=== PATIENT | female | born 1960 | race Caucasian/White ===

== ENCOUNTER 2022-05-01 23:00 | Observation (INO) | payer BC, SELFPAY ==
[2022-05-01 23:10] VITALS: BP 112/56; PULSE 126; RESP 17; TEMP 36.8; O2SAT 87; BMI 20.3
--- NOTE | 2022-05-01 23:17 | ED_ITS ---
HPI - General Adult General Chief complaint: Altered Mental Status Stated complaint: Alt mental status Time Seen by Provider: 05/01/22 23:11 Source: EMS Mode of arrival: EMS Limitations: altered mental status History of Present Illness HPI narrative: Patient is a 61-year-old female who arrived by EMS after they were contacted by the patient's family. She is from [place]. She is visiting the local area visiting her father and mother. Initially had very little information regarding the presentation. EMS stated that when 1st responders arrived to the patient's resident she did receive intranasal Narcan. It did not work immediately. It was several minutes later when the patient seemed to become more aroused. EMS arrived. They did find her confused. She had 1 episode in the ambulance coming to the emergency department when she seemed to clench her teeth. There was no specific rhythm is shaking per EMS reports. They stated that they were on the verge of intubating the patient when she suddenly became more responsive but was certainly confused. It also seems that she bit the right lower lip. There was no loss of bowel or bladder. Upon arrival the patient had no specific complaints. She was alert to person and place. Patient's family eventually arrived stating that the patient was at her normal state of health. She went to sleep late afternoon. She did have snoring episodes which is not uncommon for her. The patient's daughter went to check on her. She did not think much of the situation so she let the patient sleep longer. When she went back to check on her later she thought the patient had ?agonal ?respirations and potentially had color change. This is obviously not normal for her. We were then inform that the patient does have a seizure disorder. She is on Dilantin. She also has a diagnosis of sleep apnea but does not use a BiPAP. Her last seizure was approximately 5 years ago. Related Data Home Medications Medication Instructions Recorded Confirmed amlodipine 5 mg tablet 5 mg PO DAILY 05/02/22 05/02/22 citalopram 40 mg tablet (Celexa) 40 mg PO DAILY 05/02/22 05/02/22 estradiol 1 mg tablet 1 tab PO DAILY 05/02/22 05/02/22 eszopiclone 3 mg tablet (Lunesta) 3 mg PO BEDTIME 05/02/22 05/02/22 levothyroxine 150 mcg tablet 150 mcg PO DAILY 05/02/22 05/02/22 phenytoin sodium extended 100 mg 100 mg PO BID 05/02/22 05/02/22 capsule progesterone micronized 100 mg 1 cap PO DAILY 05/02/22 05/02/22 capsule Allergies Allergy/AdvReac Type Severity Reaction Status Date / Time No Known Drug Allergies Allergy Verified 05/02/22 01:27 Review of Systems Review of Systems ROS Unobtainable: All systems reviewed & are unremarkable except as noted in HPI and below Patient History Medical History Depression Essential hypertension Hypothyroidism Seizure Social History Smoking Status: Unknown if ever smoked Smoking Status: Unknown if ever smoked alcohol intake frequency: other Substance Use Type: unknown Exam Initial Vital Signs Initial Vital Signs: Vital Signs Temperature 98.2 F 05/01/22 23:10 Pulse Rate 126 H 05/01/22 23:10 Respiratory Rate 17 05/01/22 23:10 Blood Pressure 112/56 L 05/01/22 23:10 Pulse Oximetry 87 L 05/01/22 23:10 Oxygen Delivery Method 05/01/22 23:10 Const General: healthy appearing, comfortable and No ill appearing HENMT Head: normal to inspection and normocephalic Mouth: tongue normal and lip abnormal (Swelling right lower lip) Eyes Pupils: pupil size bilaterally 2 Resp Effort & Inspection: normal respiratory effort Auscultation: clear to auscultation bilaterally Cardio Rate: tachycardic Rhythm: regular rhythm GI Inspection: normal to inspection Palpation: soft and No tender Skin General: no rashes or lesions noted Neuro Speech: speech normal Other: Upon arrival patient was oriented to person and place but not situation. Upon re-evaluation she was alert oriented x3. Extrem General: normal to inspection and capillary refill normal Psych Appearance: grossly normal and well kempt Course Orders Ordered: ED Orders 05/01/22 23:18 Urinalysis and Microscopic Stat Urine Drug Screen, Rapid Stat 05/01/22 23:20 Acetaminophen Stat Complete Blood Count AUTO DIFF Stat Comprehensive Metabolic Panel Stat Ethanol (ETOH) Stat Lipase Stat Magnesium Stat Phenytoin / Dilantin Stat Prolactin Stat Salicylate Stat 05/02/22 00:55 COVID19 -Nasal RAPID/Pre-Proc Stat 05/02/22 01:19 CT angio chest PE protocol Stat 05/02/22 03:22 Procalcitonin Stat 05/02/22 04:43 Blood Culture Stat 05/02/22 05:00 TSH [Thyroid Stimulating Hormone] Stat 05/02/22 05:04 RT Consult Eval and Treat Now 05/02/22 05:15 ABG [Arterial Blood Gas] Stat Acetaminophen (Acetaminophen 325 Mg Tablet) 650 mg PO Q6HR PRN PRN Reason: Fever/Mild Pain (1-3) Enoxaparin Sodium (Enoxaparin 40 Mg/0.4 Ml Syringe) 40 mg SUBCUT DAILY BRIGITTE Sodium Chloride (Normal Saline 0.9%) 1,000 mls @ 125 mls/hr IV CONT BRIGITTE Last Infusion: 05/02/22 01:26 Dose: 0 mls/hr Documented By: Admin: 05/02/22 00:00 Dose: 999 mls/hr Documented By: LOBO Levofloxacin (Levofloxacin 250 Mg Tablet) 750 mg PO DAILY BRIGITTE Stop: 05/07/22 08:59 Ondansetron HCl (Ondansetron 4 Mg/2 Ml Inj) 4 mg IV Q6HR PRN PRN Reason: Nausea And Vomiting Discontinued Medications Piperacillin Sod/Tazobactam (Sod 4.5 gm/ Sodium Chloride) 100 mls @ 200 mls/hr IV NOW ONE Stop: 05/02/22 03:23 Last Infusion: 05/02/22 05:38 Dose: 0 mls/hr Documented By: Admin: 05/02/22 04:55 Dose: 200 mls/hr Documented By: BONIFACIO Vital Signs Vital signs: Vital Signs - 8 hr 05/01/22 23:10 05/01/22 23:52 05/01/22 23:54 Temperature 98.2 F Pulse Rate 126 H 107 H 108 H Respiratory Rate 17 13 18 Blood Pressure 112/56 L 83/49 L Pulse Oximetry 87 L 96 97 Oxygen Delivery Method Room Air 05/02/22 00:00 05/02/22 00:00 05/02/22 00:15 Temperature Pulse Rate 112 H Respiratory Rate 17 Blood Pressure 93/54 L 95/52 L Pulse Oximetry 98 Oxygen Delivery Method 05/02/22 00:15 05/02/22 00:30 05/02/22 00:30 Temperature Pulse Rate 116 H 104 H Respiratory Rate 12 17 Blood Pressure 81/44 L Pulse Oximetry 99 99 Oxygen Delivery Method 05/02/22 00:45 05/02/22 00:45 05/02/22 01:00 Temperature Pulse Rate 100 H Respiratory Rate 14 Blood Pressure 81/44 L 97/54 L Pulse Oximetry 100 Oxygen Delivery Method 05/02/22 01:00 05/02/22 01:15 05/02/22 01:15 Temperature Pulse Rate 107 H 111 H Respiratory Rate 15 19 Blood Pressure 94/53 L Pulse Oximetry 94 89 L Oxygen Delivery Method 05/02/22 01:30 05/02/22 01:30 05/02/22 01:45 Temperature Pulse Rate 107 H Respiratory Rate 20 Blood Pressure 92/51 L 96/54 L Pulse Oximetry 97 Oxygen Delivery Method 05/02/22 01:45 05/02/22 01:58 05/02/22 01:58 Temperature Pulse Rate 101 H 107 H Respiratory Rate 16 14 Blood Pressure 103/58 L Pulse Oximetry 96 96 Oxygen Delivery Method 05/02/22 02:00 05/02/22 02:00 05/02/22 02:12 Temperature Pulse Rate 101 H Respiratory Rate 9 L Blood Pressure 92/54 L 108/59 L Pulse Oximetry 97 Oxygen Delivery Method 05/02/22 02:12 05/02/22 02:13 05/02/22 02:13 Temperature Pulse Rate 106 H 109 H Respiratory Rate 11 L 28 H Blood Pressure 118/60 Pulse Oximetry 92 82 L Oxygen Delivery Method 05/02/22 02:15 05/02/22 02:15 Temperature Pulse Rate 109 H Respiratory Rate 13 Blood Pressure 102/55 L Pulse Oximetry 96 Oxygen Delivery Method Medical Decision Making Lab Data Lab results reviewed: Yes I reviewed the patient's lab results. Result diagrams: 05/01/22 23:20 05/01/22 23:20 Labs: Lab Results 05/01/22 05/01/22 05/01/22 Range/Units 23:20 23:20 23:20 WBC 15.9 H (4.5-11.0) X10^3/uL RBC 3.60 L (4.0-5.2) X10^6/uL Hgb 11.0 L (12.0-16.0) g/dL Hct 33.9 L (36-46) % MCV 94.0 (80-100) fL MCH 30.6 (26-34) PG MCHC 32.5 (30-36) % RDW 15.1 H (11.6-14.8) % Plt Count 252 (150-400) X10^3/uL Neut % (Auto) 89.5 H (50-75) % Lymph % (Auto) 3.3 L (25-40) % [place] % (Auto) 6.9 (3-14) % Eos % (Auto) 0.2 L (2-4) % Baso % (Auto) 0.1 (0-2) % Neut # (Auto) 14696 H (5762-7523) /uL Lymph # (Auto) 500 L (4943-5925) /uL [place] # (Auto) 1100 H (0-900) /uL Eos # (Auto) 0 (0-450) /uL Baso # (Auto) 0 (0-100) /uL Sodium 138 (137-145) mmol/L Potassium 4.3 (3.4-5.1) mmol/L Chloride 101 (98-107) mmol/L Carbon Dioxide 29 (22-32) mmol/L BUN 11 (7-17) mg/dL Creatinine 0.80 (0.52-1.04) mg/dL Estimated GFR > 60 (>60) mL/min BUN/Creatinine Ratio 13.8 (6-22) Glucose 98 (70-100) mg/dL Calcium 8.1 L (8.4-10.2) mg/dL Magnesium 1.8 (1.6-2.3) mg/dL Total Bilirubin 0.2 (0.2-1.3) mg/dL AST 152 H (14-36) IU/L ALT 52 H (<35) IU/L Alkaline Phosphatase 97 (38-126) U/L Total Protein 6.4 (6.3-8.2) g/dL Albumin 3.8 (3.5-5.0) g/dL Globulin 2.6 (1.7-4.1) g/dL Albumin/Globulin Ratio 1.5 (1.0-2.8) Lipase 277 (23-300) U/L Procalcitonin (<0.5) ng/mL TSH (0.47-4.68) uIU/mL Prolactin 49.7 H (3.0-18.6) ng/mL Salicylates < 1.0 (<20) mg/dL Acetaminophen < 10 (10-30) ug/mL Phenytoin < 3.0 L (10-20) ug/mL Ethyl Alcohol < 10 ( - 10) mg/dL SARS-CoV-2 (PCR) (Negative) 05/01/22 05/01/22 05/02/22 Range/Units 23:20 23:20 00:55 WBC (4.5-11.0) X10^3/uL RBC (4.0-5.2) X10^6/uL Hgb (12.0-16.0) g/dL Hct (36-46) % MCV (80-100) fL MCH (26-34) PG MCHC (30-36) % RDW (11.6-14.8) % Plt Count (150-400) X10^3/uL Neut % (Auto) (50-75) % Lymph % (Auto) (25-40) % [place] % (Auto) (3-14) % Eos % (Auto) (2-4) % Baso % (Auto) (0-2) % Neut # (Auto) (2187-0413) /uL Lymph # (Auto) (7518-3320) /uL [place] # (Auto) (0-900) /uL Eos # (Auto) (0-450) /uL Baso # (Auto) (0-100) /uL Sodium (137-145) mmol/L Potassium (3.4-5.1) mmol/L Chloride (98-107) mmol/L Carbon Dioxide (22-32) mmol/L BUN (7-17) mg/dL Creatinine (0.52-1.04) mg/dL Estimated GFR (>60) mL/min BUN/Creatinine Ratio (6-22) Glucose (70-100) mg/dL Calcium (8.4-10.2) mg/dL Magnesium (1.6-2.3) mg/dL Total Bilirubin (0.2-1.3) mg/dL AST (14-36) IU/L ALT (<35) IU/L Alkaline Phosphatase (38-126) U/L Total Protein (6.3-8.2) g/dL Albumin (3.5-5.0) g/dL Globulin (1.7-4.1) g/dL Albumin/Globulin Ratio (1.0-2.8) Lipase (23-300) U/L Procalcitonin 0.09 (<0.5) ng/mL TSH 2.45 (0.47-4.68) uIU/mL Prolactin (3.0-18.6) ng/mL Salicylates (<20) mg/dL Acetaminophen (10-30) ug/mL Phenytoin (10-20) ug/mL Ethyl Alcohol ( - 10) mg/dL SARS-CoV-2 (PCR) Negative (Negative) Imaging Data CT scan - chest: Radiologist's Impression: No pulmonary emboli Airspace opacities within the right upper lobe consistent with pneumonia MDM Narrative Medical decision making narrative: No seizure activity since arrival here in the ER. She is now completely alert oriented. She has had episodes where she desaturates to the 80s and even at 1 point was down into the 70s and upper 60s. She does regain her oxygen saturations with 1 L by nasal cannula. The CT scan of her chest shows findings consistent with pneumonia. Given her presentation I do have concern that this was an aspiration pneumonia. Zosyn was ordered. She is nontoxic appearing when she is sitting in the room and on oxygen. Not hypotensive. Given her presenting symptoms and her hypoxia patient does require admission to the hospital for further evaluation. I did discuss this with the patient. She expressed understanding and agreement. Discussed the case with KAY Weston who will admit for further evaluation and treatment. Discharge Plan Departure Patient Disposition: Admitted As Inpatient Clinical Impression: Pneumonia, Hypoxia, Seizure Admit Date/Time: 05/02/22 05:10 Admit Provider: Ronna Weston
[2022-05-01 23:31] LABS: Add Manual Diff / Slide Review NO; Basophils Absolute Auto 0 /uL (0-100); Basophils Percent Auto 0.1 % (0-2); Eosinophils Absolute Auto 0 /uL (0-450); Eosinophils Percent Auto 0.2 % (2-4); Hematocrit 33.9 % (36-46); Lymphocytes Absolute Auto 500 /uL (1100-4500); Lymphocytes Percent Auto 3.3 % (25-40); Mean Corpuscular HGB Conc 32.5 % (30-36); Mean Corpuscular Hemoglobin 30.6 PG (26-34); Monocytes Absolute Auto 1100 /uL (0-900); Monocytes Percent Auto 6.9 % (3-14); Neutrophils Absolute Auto 14200 /uL (1500-7000); Neutrophils Percent Auto 89.5 % (50-75); Platelet Count 252 X10^3/uL (150-400); Red Cell Distribution Width 15.1 % (11.6-14.8); White Blood Cell Count 15.9 X10^3/uL (4.5-11.0)
[2022-05-01 23:42] LABS: Acetaminophen < 10 ug/mL (10-30); Alanine Aminotransferase 52 IU/L (<35); Albumin 3.8 g/dL (3.5-5.0); Albumin Globulin Ratio 1.5 (1.0-2.8); Alkaline Phosphatase 97 U/L (38-126); Aspartate Aminotransferase 152 IU/L (14-36); BUN Creatinine Ratio 13.8 (6-22); Bilirubin Total 0.2 mg/dL (0.2-1.3); Blood Urea Nitrogen 11 mg/dL (7-17); Calcium 8.1 mg/dL (8.4-10.2); Carbon Dioxide 29 mmol/L (22-32); Chloride 101 mmol/L (98-107); Estimated Glomerular Filt Rate > 60 mL/min (>60); Ethanol (ETOH) < 10 mg/dL; Globulin 2.6 g/dL (1.7-4.1); Glucose 98 mg/dL (70-100); HEMOLYSIS < 15 (0-50); Lipase 277 U/L (23-300); Magnesium 1.8 mg/dL (1.6-2.3); Potassium 4.3 mmol/L (3.4-5.1); Salicylate < 1.0 mg/dL (<20); Sodium 138 mmol/L (137-145); Total Protein 6.4 g/dL (6.3-8.2)
[2022-05-01 23:52] VITALS: BP 83/49; PULSE 107; RESP 13; O2SAT 96
[2022-05-01 23:52] LABS: Phenytoin / Dilantin < 3.0 ug/mL (10-20)
[2022-05-01 23:54] VITALS: PULSE 108; RESP 18; O2SAT 97
[2022-05-01 23:58] LABS: Prolactin 49.7 ng/mL (3.0-18.6)
[2022-05-02] VITALS (34 sets, daily range): BP systolic 81–145; BP diastolic 44–63; PULSE 85–116; RESP 9–28; TEMP 37.3; O2SAT 82–100
[2022-05-02] MEDS: SODIUM CHLORIDE 0.9% 1,000 ML 999 ML IV
--- NOTE | 2022-05-02 00:48 | PC.NURSE ---
Pt BP low, provider aware. IVF bolus (2nd bag) placed on pressure bag. Pt asymptomatic, still remains AxOx4, GCS 15 and interactive with daughter in room.
--- NOTE | 2022-05-02 01:19 | DI.CT.S_ITS ---
PROCEDURE: CT ANGIO CHEST PE PROTOCOL INDICATIONS: Chest pain, shortness of breath, tachycardia TECHNIQUE: After the administration of intravenous contrast, 2 mm thick sections acquired from the pulmonary apices to the posterior costophrenic angles. 3-dimensional maximum intensity projection (MIP) coronal and sagittal reformats were then acquired through the thorax. For radiation dose reduction, the following was used: automated exposure control, adjustment of mA and/or kV according to patient size. COMPARISON: None. FINDINGS: Image quality: Excellent. Lungs and pleura: Airspace opacities in the right upper lobe consistent with pneumonia. Mild bibasilar atelectasis. No pleural effusions or pneumothorax. Central and peripheral airways are patent and normal in caliber. Mediastinum: Heart size is normal. No pericardial effusion. No mediastinal adenopathy by size criteria. Thoracic aorta and central pulmonary arteries are normal in size. Esophagus is normal in caliber. No hiatal hernia. Bones and chest wall: No suspicious bony lesions. No vertebral body compression fractures. No axillary or supraclavicular adenopathy by size criteria. Thyroid gland is normal. Abdomen: Limited visualization of the upper abdomen shows no acute abnormality. IMPRESSION: 1. No pulmonary emboli. 2. Right upper lobe pneumonia. Comment: Final report is concordant with preliminary interpretation by [facility] Dictated by: Marcelino Paredes M.D. on 05/02/2022 at 7:22 Approved by: Marcelino Paredes M.D. on 05/02/2022 at 7:48
[2022-05-02 01:21] LABS: COVID19 -Nasal RAPID Negative (Negative)
--- NOTE | 2022-05-02 02:19 | PC.NURSE ---
Orthostatic BPs obtained on pt. BP went from 96 systolic to 118 systolic (sitting to standing), and HR conchis from 102 to 118 with standing. Provider notified.
--- NOTE | 2022-05-02 03:00 | PC.NURSE ---
Pt had dropped down to 66% on Room air. was able to bring sats up with deep breathing and placed back on 1 L via nasal cannula and provider aware.
--- NOTE | 2022-05-02 03:53 | PC.NURSE ---
Pt not sure if she wants to be admitted. Per provider, we will wait on blood draw for blood cultures and abx administration until pt makes this decision.
[2022-05-02 03:57] LABS: Procalcitonin 0.09 ng/mL (<0.5)
--- NOTE | 2022-05-02 04:07 | PC.NURSE ---
Pt agreeable to admission. Lab called to obtain blood cultures.
[2022-05-02] MEDS: PIPERACILLIN/TAZO 4.5 GM in SODIUM CHLORIDE 0.9% 100 ML IV (04:55)
[2022-05-02 05:47] LABS: Thyroid Stimulating Hormone 2.45 uIU/mL (0.47-4.68)
[2022-05-02 05:56] LABS: HCO3 ABG 30 mmol/L (22-26); Oxygen Saturation ABG 98 % (95-100); PCO2 ABG 65.1 mmHg (35-45); PO2 ABG 125 mmHg (80-100); TCO2 ABG 31 mmol/L (21-31)
--- NOTE | 2022-05-02 05:56 | P.HP_ITS ---
History of Present Illness History of Present Illness Date Patient Seen: 05/02/22 Time Patient Seen: 06:24 Chief complaint: Alt mental status Narrative: Jyoti Beltre is a 61-year-old female visiting from [place] to see her mother who was on hospice here. Patient does not really remember anything that happened but her daughter is in the room and provides history. They returned home and the patient went upstairs take a nap at 6:00 p.m.. She then got up around sometime between 7 and 7:30 p.m. and then went back to sleep the daughter heard her speaking in her sleep and groaning. The patient apparently had a history of sleep apnea used to use a CPAP machine but currently does not per the daughter. The daughter went back up at 9:00 a.m. to check on her, found her mother gasping for breath she seemed to be very apneic and stated that her mother's face and her lips were blue and that is when she called 911. Patient's last seizure was in 2013 they started generally about 10 years ago and she has always taken a single dose of Dilantin and has been trying to wean off of her medications. No particular reason why. Per the emergency department provider EMS also reported that she was confused when EMS arrived and then appeared to have another seizure in the ambulance when she clenched her teeth. They are on the verge of intubating the patient when she awoke in and was confused. They reported that she bit her right lower lip but was not incontinent of urine or stool. The patient does state that she has been under lot of stress with respect to her mom's health condition. Per the ED provider she was very apneic and desats into the mid 80s but seems to do okay when she has about 1 L of oxygen she did drop down into the 60s momentarily in the emergency department. The CT was reported to me to have a localized collection in the right upper lobe. She does have an elevated white count at 15.9 she is mildly anemic with a hemoglobin and hematocrit of 11 and 33.9 respectively,, she has a left shift, her ABG pH was 7.27 ABG pCO2 is 65.1 ABG PO2 is 125 ABG bicarb was 30 ABG total CO2 is 31 and ABG O2 saturation is 98%. Sodium was 138 potassium 4.3 chloride 101 bicarb 29 BUN 11 creatinine 0.8 with an EGFR of greater than 60 calcium was 8.1 magnesium 1.8 AST 152 ALT 52 lipase 277 TSH was normal at 2.45 prolactin 49.7 and her Dilantin level was low at less than 3 normal ranges between 10 and 20, COVID-19 PCR is negative. Patient History Medical History (Updated 05/02/22 @ 06:32 by HALEY Montejo) Depression Essential hypertension Fracture, jaw Hypothyroidism Seizure disorder Surgical History (Updated 05/02/22 @ 06:32 by HALEY Montejo) Breast implant status Family & Social History Family History (Updated 05/02/22 @ 06:33 by HALEY Montejo) Mother Dementia Hospice care patient Sister Lupus Father Alive and well Safety & Behavioral: Feels Safe in Current Yes Environment Tobacco & Substance use: Smoking Status denies alcohol intake frequency 2-3 beers daily Substance Use Type unknown Meds Home Medications and Allergies Home Medications Medication Instructions Recorded Confirmed Type amlodipine 5 mg tablet 5 mg PO DAILY 05/02/22 05/02/22 History citalopram 40 mg tablet (Celexa) 40 mg PO DAILY 05/02/22 05/02/22 History estradiol 1 mg tablet 1 tab PO DAILY 05/02/22 05/02/22 History eszopiclone 3 mg tablet (Lunesta) 3 mg PO BEDTIME 05/02/22 05/02/22 History levothyroxine 150 mcg tablet 150 mcg PO DAILY 05/02/22 05/02/22 History phenytoin sodium extended 100 mg 100 mg PO BID 05/02/22 05/02/22 History capsule progesterone micronized 100 mg 1 cap PO DAILY 05/02/22 05/02/22 History capsule Allergies Allergy/AdvReac Type Severity Reaction Status Date / Time No Known Drug Allergies Allergy Verified 05/02/22 01:27 Review of Systems Review of Systems ROS: Yes All systems reviewed with the patient and are negative except as otherwise documented Exam Vital Signs (past 8 hours): - 05/01/22 23:10 05/01/22 23:52 05/01/22 23:54 Temperature 98.2 F Pulse Rate 126 H 107 H 108 H Respiratory Rate 17 13 18 Blood Pressure 112/56 L 83/49 L Pulse Oximetry 87 L 96 97 Oxygen Delivery Method Room Air 05/02/22 00:00 05/02/22 00:00 05/02/22 00:15 Temperature Pulse Rate 112 H Respiratory Rate 17 Blood Pressure 93/54 L 95/52 L Pulse Oximetry 98 Oxygen Delivery Method 05/02/22 00:15 05/02/22 00:30 05/02/22 00:30 Temperature Pulse Rate 116 H 104 H Respiratory Rate 12 17 Blood Pressure 81/44 L Pulse Oximetry 99 99 Oxygen Delivery Method 05/02/22 00:45 05/02/22 00:45 05/02/22 01:00 Temperature Pulse Rate 100 H Respiratory Rate 14 Blood Pressure 81/44 L 97/54 L Pulse Oximetry 100 Oxygen Delivery Method 05/02/22 01:00 05/02/22 01:15 05/02/22 01:15 Temperature Pulse Rate 107 H 111 H Respiratory Rate 15 19 Blood Pressure 94/53 L Pulse Oximetry 94 89 L Oxygen Delivery Method 05/02/22 01:30 05/02/22 01:30 05/02/22 01:45 Temperature Pulse Rate 107 H Respiratory Rate 20 Blood Pressure 92/51 L 96/54 L Pulse Oximetry 97 Oxygen Delivery Method 05/02/22 01:45 05/02/22 01:58 05/02/22 01:58 Temperature Pulse Rate 101 H 107 H Respiratory Rate 16 14 Blood Pressure 103/58 L Pulse Oximetry 96 96 Oxygen Delivery Method 05/02/22 02:00 05/02/22 02:00 05/02/22 02:12 Temperature Pulse Rate 101 H Respiratory Rate 9 L Blood Pressure 92/54 L 108/59 L Pulse Oximetry 97 Oxygen Delivery Method 05/02/22 02:12 05/02/22 02:13 05/02/22 02:13 Temperature Pulse Rate 106 H 109 H Respiratory Rate 11 L 28 H Blood Pressure 118/60 Pulse Oximetry 92 82 L Oxygen Delivery Method 05/02/22 02:15 05/02/22 02:15 Temperature Pulse Rate 109 H Respiratory Rate 13 Blood Pressure 102/55 L Pulse Oximetry 96 Oxygen Delivery Method Oxygen Delivery Method Room Air Narrative Exam Narrative: Gen: Alert, oriented, well-developed 61 y.o. female, NAD HEENT: normocephalic, atraumatic, conjunctiva clear, sclera non-icteric, oral mucosa pink and moist Neck: supple, full ROM, no JVD, trachea is midline Resp: Lungs CTA, non-labored breathing, on 1L O2 NC CV: RRR, no murmur or rubs Abd: soft, non-tender, normoactive BTs Skin: no lesions or rashes, dry and intact Neuro: Alert and oriented X 4 w/no focal deficits. Speech clear and coherent. Extremities: moves all 4 extremities, is ambulatory, negative Magdalena?s sign Psyche: normal mood and affect. Objective Labs Result Diagrams: 05/01/22 23:20 05/01/22 23:20 Labs: Laboratory Results - last 24 hr 05/01/22 05/01/22 05/01/22 23:20 23:20 23:20 WBC 15.9 H RBC 3.60 L Hgb 11.0 L Hct 33.9 L MCV 94.0 MCH 30.6 MCHC 32.5 RDW 15.1 H Plt Count 252 Neut % (Auto) 89.5 H Lymph % (Auto) 3.3 L [place] % (Auto) 6.9 Eos % (Auto) 0.2 L Baso % (Auto) 0.1 Neut # (Auto) 25571 H Lymph # (Auto) 500 L [place] # (Auto) 1100 H Eos # (Auto) 0 Baso # (Auto) 0 Sodium 138 Potassium 4.3 Chloride 101 Carbon Dioxide 29 BUN 11 Creatinine 0.80 Estimated GFR > 60 BUN/Creatinine Ratio 13.8 Glucose 98 Calcium 8.1 L Magnesium 1.8 Total Bilirubin 0.2 AST 152 H ALT 52 H Alkaline Phosphatase 97 Total Protein 6.4 Albumin 3.8 Globulin 2.6 Albumin/Globulin Ratio 1.5 Lipase 277 Procalcitonin TSH Prolactin 49.7 H Salicylates < 1.0 Acetaminophen < 10 Phenytoin < 3.0 L Ethyl Alcohol < 10 SARS-CoV-2 (PCR) 05/01/22 05/01/22 05/02/22 23:20 23:20 00:55 WBC RBC Hgb Hct MCV MCH MCHC RDW Plt Count Neut % (Auto) Lymph % (Auto) [place] % (Auto) Eos % (Auto) Baso % (Auto) Neut # (Auto) Lymph # (Auto) [place] # (Auto) Eos # (Auto) Baso # (Auto) Sodium Potassium Chloride Carbon Dioxide BUN Creatinine Estimated GFR BUN/Creatinine Ratio Glucose Calcium Magnesium Total Bilirubin AST ALT Alkaline Phosphatase Total Protein Albumin Globulin Albumin/Globulin Ratio Lipase Procalcitonin 0.09 TSH 2.45 Prolactin Salicylates Acetaminophen Phenytoin Ethyl Alcohol SARS-CoV-2 (PCR) Negative Assessment & Plan Assessment & Plan narrative: Jyoti Beltre is admitted for further treatment and management of a seizure and suspected aspiration pneumonia Seizure disorder, subtherapeutic on Dilantin, acute * Dilantin level was 3.0 * She will resume at 100 mg po tid * Recheck level in a 2-3 days * Seizure precautions Aspiration pneumonia, acute * She is started on IV Levaquin 750 p.o. daily * Sputum and blood cultures are pending Essential hypertension, currently hypotensive * She normally takes amlodipine 5 mg however we will request that this be held due to her current hypotensive state Hypothyroidism, chronic * TSH was 2.45 normal * Continue home dose of levothyroxine 150 mcg daily Depression, chronic * Continue home dose of citalopram 40 mg p.o. daily VTE Prophylaxis: Wells risk score 4.5 Enoxaparin 40 mg subQ once daily Bilateral SCDs Patient is admitted to the inpatient service due to the severity of disease, r isks of further disease progression and this stay is expected to exceed 2 midnights. FEN: IV fluids: NS at 125 ml/hour, diet: heart healthy, labs: CBC, C/BMP, liver enzymes, Mag, PT/INR Consultants None Dispo: probable discharge back to home Code status: Full Code as discussed with the patient who identifies her daughter Lebron Barron as her surrogate and POA. [X] I have utilized all available immediate resources to obtain, update, or review of the patient's current medications COVID-19 COVID-19 status: Negative Result date/Date tested (Pos, Neg/Pending): 05/02/22 Time Spent With Patient Critical Care time: I spent a total of [] minutes of critical care time on this patient's care today; this time is exclusive of procedural time. Scores Wells' Criteria for PE Clinical signs and symptoms of DVT: Yes PE is #1 Dx or equally likely: No Heart rate > 100: Yes Immobilization at least 3 days or surg in previous 4 weeks: No History of PE or DVT: No Hemoptysis: No Malignancy w/Treatment within 6 months or palliative: No Wells' PE Score total: 4.5
[2022-05-02 05:57] LABS: Fractionated Inspired Oxygen 24
[2022-05-02 05:58] LABS: pH ABG 7.27 (7.35-7.45)
[2022-05-02 06:24] LABS: BUN Creatinine Ratio 17.2 (6-22); Blood Urea Nitrogen 10 mg/dL (7-17); Calcium 7.8 mg/dL (8.4-10.2); Carbon Dioxide 29 mmol/L (22-32); Chloride 103 mmol/L (98-107); Estimated Glomerular Filt Rate > 60 mL/min (>60); Glucose 100 mg/dL (70-100); HEMOLYSIS < 15 (0-50); Potassium 4.7 mmol/L (3.4-5.1); Sodium 136 mmol/L (137-145)
--- NOTE | 2022-05-02 09:27 | PM.DS.1 ---
History of Present Illness History of Present Illness Date Patient Seen: 05/02/22 Time Patient Seen: 09:00 Chief complaint: Alt mental status Narrative: Jyoti Beltre is a 61-year-old female visiting from [place] to see her mother who was on hospice here.? Patient does not really remember anything that happened but her daughter is in the room and provides history.? They returned home and the patient went upstairs take a nap at 6:00 p.m..? She then got up around sometime between 7 and 7:30 p.m. and then went back to sleep the daughter heard her speaking in her sleep and groaning. The patient apparently had a history of sleep apnea used to use a CPAP machine but currently does not per the daughter.? The daughter went back up at 9:00 a.m. to check on her, found her mother gasping for breath she seemed to be very apneic and stated that her mother's face and her lips were blue and that is when she called 911.? Patient's last seizure was in 2013 they started generally about 10 years ago and she has always taken a single dose of Dilantin and has been trying to wean off of her medications.? No particular reason why.? Per the emergency department provider EMS also reported that she was confused when EMS arrived and then appeared to have another seizure in the ambulance when she clenched her teeth.? They are on the verge of intubating the patient when she awoke in and was confused.? They reported that she bit her right lower lip but was not incontinent of urine or stool.? The patient does state that she has been under lot of stress with respect to her mom's health condition.? Per the ED provider she was very apneic and desats into the mid 80s but seems to do okay when she has about 1 L of oxygen she did drop down into the 60s momentarily in the emergency department. The CT was reported to me to have a localized collection in the right upper lobe.? She does have an elevated white count at 15.9 she is mildly anemic with a hemoglobin and hematocrit of 11 and 33.9 respectively,, she has a left shift, her ABG pH was 7.27 ABG pCO2 is 65.1 ABG PO2 is 125 ABG bicarb was 30 ABG total CO2 is 31 and ABG O2 saturation is 98%.? Sodium was 138 potassium 4.3 chloride 101 bicarb 29 BUN 11 creatinine 0.8 with an EGFR of greater than 60 calcium was 8.1 magnesium 1.8 AST 152 ALT 52 lipase 277 TSH was normal at 2.45 prolactin 49.7 and her Dilantin level was low at less than 3 normal ranges between 10 and 20, COVID-19 PCR is negative. Discharge Providers Provider Date of admission: 05/02/22 05:10 Discharge Date: 05/02/22 Discharge provider: Vic Quiroz DO Summary Hospital Course Discharge Diagnosis: Seizure disorder, subtherapeutic on Dilantin, acute Aspiration pneumonitis, acute Essential hypertension, currently hypotensive Hypothyroidism, chronic Depression, chronic Hospital Course: Jyoti was admitted after sustaining a witnessed seizure at home by daughter. Patient takes Dilantin which is supposed to be 3 times per day but she was weaning herself off and was only taking it once per day because she ?wanted to take less medications?. Her Dilantin level was subtherapeutic at 3 (10-20 is normal) which was felt to be the cause of her seizure exacerbated by the stress of visiting from [place] for her mom who has severe dementia and is on hospice. TSH level is normal. Patient returned to baseline after her seizure and was fully alert and oriented. There was concern for an aspiration pneumonia and a CT chest showed right upper lobe infiltrate. However patient denied any cough, shortness of breath or fevers. Procalcitonin was negative. She received a dose of IV antibiotics. She was instructed to take increased loading dose of Dilantin then resume her normal dose of 100 mg 3 times per day. She was sent home on 5 days of Augmentin for possible aspiration pneumonia. Exam Vital Signs (past 8 hours): - 05/02/22 01:30 05/02/22 01:30 05/02/22 01:45 Temperature Pulse Rate 107 H Respiratory Rate 20 Blood Pressure 92/51 L 96/54 L Pulse Oximetry 97 05/02/22 01:45 05/02/22 01:58 05/02/22 01:58 Temperature Pulse Rate 101 H 107 H Respiratory Rate 16 14 Blood Pressure 103/58 L Pulse Oximetry 96 96 05/02/22 02:00 05/02/22 02:00 05/02/22 02:12 Temperature Pulse Rate 101 H Respiratory Rate 9 L Blood Pressure 92/54 L 108/59 L Pulse Oximetry 97 05/02/22 02:12 05/02/22 02:13 05/02/22 02:13 Temperature Pulse Rate 106 H 109 H Respiratory Rate 11 L 28 H Blood Pressure 118/60 Pulse Oximetry 92 82 L 05/02/22 02:15 05/02/22 02:15 05/02/22 02:30 Temperature Pulse Rate 109 H Respiratory Rate 13 Blood Pressure 102/55 L 98/50 L Pulse Oximetry 96 05/02/22 02:30 05/02/22 02:45 05/02/22 02:45 Temperature Pulse Rate 97 H 96 H Respiratory Rate 12 11 L Blood Pressure 91/53 L Pulse Oximetry 91 95 05/02/22 03:00 05/02/22 03:00 05/02/22 03:15 Temperature Pulse Rate 97 H Respiratory Rate 12 Blood Pressure 95/51 L 94/53 L Pulse Oximetry 95 05/02/22 03:15 05/02/22 03:30 05/02/22 03:30 Temperature Pulse Rate 93 H 103 H Respiratory Rate 12 20 Blood Pressure 145/63 H Pulse Oximetry 95 93 05/02/22 03:46 05/02/22 03:46 05/02/22 04:00 Temperature Pulse Rate 96 H Respiratory Rate 20 Blood Pressure 124/55 L 108/55 L Pulse Oximetry 05/02/22 04:00 05/02/22 04:15 05/02/22 04:15 Temperature Pulse Rate 92 H 98 H Respiratory Rate 19 19 Blood Pressure 106/57 L Pulse Oximetry 05/02/22 04:30 05/02/22 04:30 05/02/22 04:45 Temperature Pulse Rate 91 H 91 H Respiratory Rate 14 19 Blood Pressure 104/55 L Pulse Oximetry 97 05/02/22 04:45 05/02/22 05:00 05/02/22 05:00 Temperature Pulse Rate 89 Respiratory Rate 12 Blood Pressure 104/55 L 99/55 L Pulse Oximetry 96 05/02/22 05:15 05/02/22 05:15 05/02/22 05:30 Temperature Pulse Rate 85 Respiratory Rate 15 Blood Pressure 100/57 L 102/57 L Pulse Oximetry 97 05/02/22 05:30 05/02/22 05:45 05/02/22 05:45 Temperature Pulse Rate 92 H 87 Respiratory Rate 19 12 Blood Pressure 99/56 L Pulse Oximetry 96 93 05/02/22 06:00 05/02/22 06:00 05/02/22 06:15 Temperature Pulse Rate 90 90 Respiratory Rate 16 21 Blood Pressure 103/54 L Pulse Oximetry 94 99 05/02/22 06:15 05/02/22 06:30 05/02/22 06:30 Temperature Pulse Rate 101 H Respiratory Rate 20 Blood Pressure 107/62 108/63 Pulse Oximetry 95 05/02/22 06:45 05/02/22 06:45 05/02/22 07:00 Temperature Pulse Rate 90 Respiratory Rate 12 Blood Pressure 102/58 L 114/57 L Pulse Oximetry 97 05/02/22 07:00 05/02/22 07:30 05/02/22 08:44 Temperature 99.2 F Pulse Rate 93 H 93 H 96 H Respiratory Rate 14 16 Blood Pressure 125/50 L Pulse Oximetry 94 99 92 Oxygen Delivery Method Room Air Narrative Exam Narrative: Gen: Alert, oriented, well-developed 61 y.o. female, NAD HEENT: normocephalic, atraumatic, conjunctiva clear, sclera non-icteric, oral mucosa pink and moist, right lower lip swollen Neck: supple, full ROM, no JVD, trachea is midline Resp: Lungs CTA, non-labored breathing, on 1L O2 NC CV: RRR, no murmur or rubs Abd: soft, non-tender, normoactive BTs Skin: no lesions or rashes, dry and intact Neuro: Alert and oriented X 4 w/no focal deficits. Speech clear and coherent. Extremities: moves all 4 extremities, is ambulatory, negative Magdalena?s sign Psyche: normal mood and affect. Objective Labs Result Diagrams: 05/01/22 23:20 05/02/22 06:07 Labs: Laboratory Results - last 24 hr 05/01/22 05/01/22 05/01/22 23:20 23:20 23:20 WBC 15.9 H RBC 3.60 L Hgb 11.0 L Hct 33.9 L MCV 94.0 MCH 30.6 MCHC 32.5 RDW 15.1 H Plt Count 252 Neut % (Auto) 89.5 H Lymph % (Auto) 3.3 L [place] % (Auto) 6.9 Eos % (Auto) 0.2 L Baso % (Auto) 0.1 Neut # (Auto) 06167 H Lymph # (Auto) 500 L [place] # (Auto) 1100 H Eos # (Auto) 0 Baso # (Auto) 0 ABG pH ABG pCO2 ABG pO2 ABG HCO3 ABG Total CO2 ABG O2 Saturation ABG Base Excess FiO2 Sodium 138 Potassium 4.3 Chloride 101 Carbon Dioxide 29 BUN 11 Creatinine 0.80 Estimated GFR > 60 BUN/Creatinine Ratio 13.8 Glucose 98 Calcium 8.1 L Magnesium 1.8 Total Bilirubin 0.2 AST 152 H ALT 52 H Alkaline Phosphatase 97 Total Protein 6.4 Albumin 3.8 Globulin 2.6 Albumin/Globulin Ratio 1.5 Lipase 277 Procalcitonin TSH Prolactin 49.7 H Salicylates < 1.0 Acetaminophen < 10 Phenytoin < 3.0 L Ethyl Alcohol < 10 SARS-CoV-2 (PCR) 05/01/22 05/01/22 05/02/22 23:20 23:20 00:55 WBC RBC Hgb Hct MCV MCH MCHC RDW Plt Count Neut % (Auto) Lymph % (Auto) [place] % (Auto) Eos % (Auto) Baso % (Auto) Neut # (Auto) Lymph # (Auto) [place] # (Auto) Eos # (Auto) Baso # (Auto) ABG pH ABG pCO2 ABG pO2 ABG HCO3 ABG Total CO2 ABG O2 Saturation ABG Base Excess FiO2 Sodium Potassium Chloride Carbon Dioxide BUN Creatinine Estimated GFR BUN/Creatinine Ratio Glucose Calcium Magnesium Total Bilirubin AST ALT Alkaline Phosphatase Total Protein Albumin Globulin Albumin/Globulin Ratio Lipase Procalcitonin 0.09 TSH 2.45 Prolactin Salicylates Acetaminophen Phenytoin Ethyl Alcohol SARS-CoV-2 (PCR) Negative 05/02/22 05/02/22 05:15 06:07 WBC RBC Hgb Hct MCV MCH MCHC RDW Plt Count Neut % (Auto) Lymph % (Auto) [place] % (Auto) Eos % (Auto) Baso % (Auto) Neut # (Auto) Lymph # (Auto) [place] # (Auto) Eos # (Auto) Baso # (Auto) ABG pH 7.27 L* ABG pCO2 65.1 H* ABG pO2 125 H ABG HCO3 30 H ABG Total CO2 31 ABG O2 Saturation 98 ABG Base Excess 3.0 H FiO2 24 Sodium 136 L Potassium 4.7 Chloride 103 Carbon Dioxide 29 BUN 10 Creatinine 0.58 Estimated GFR > 60 BUN/Creatinine Ratio 17.2 Glucose 100 Calcium 7.8 L Magnesium Total Bilirubin AST ALT Alkaline Phosphatase Total Protein Albumin Globulin Albumin/Globulin Ratio Lipase Procalcitonin TSH Prolactin Salicylates Acetaminophen Phenytoin Ethyl Alcohol SARS-CoV-2 (PCR) [facility] Medical History Depression Essential hypertension Fracture, jaw Hypothyroidism Seizure disorder Surgical History Breast implant status Family History Mother Dementia Hospice care patient Sister Lupus Father Alive and well Social History Smoking Status: Unknown if ever smoked Discharge Plan Discharge Plan Patient Disposition: Home Provider Discharge Comment: You were admitted for a seizure which was likely due to low levels of Dilantin in your body. This was from taking it only once per day when it should be 3 times per day. Please start taking it 3 times per day and I have sent a new prescription to our pharmacy in the hospital to last year until you get back to [place]. I am also giving her an antibiotic for 5 days since your chest scans showed a possible pneumonia. I suggest you see a neurologist for your seizure condition to help decide your medication dosing going forward. Discharge orders & Medications Prescriptions: New phenytoin sodium extended [Dilantin Extended] 100 mg capsule 100 mg PO TID Qty: 30 0RF amoxicillin-pot clavulanate 875-125 mg tablet 1 tab PO BID 5 Days Qty: 10 0RF Continued amlodipine 5 mg Tablet 5 mg PO DAILY levothyroxine 150 mcg Tablet 150 mcg PO DAILY eszopiclone [Lunesta] 3 mg Tablet 3 mg PO BEDTIME citalopram [Celexa] 40 mg Tablet 40 mg PO DAILY estradiol 1 mg tablet 1 tab PO DAILY Label Comments: TAKE 1 TABLET (1 MG) BY ORAL ROUTE ONCE DAILY progesterone micronized 100 mg capsule 1 cap PO DAILY Discontinued phenytoin sodium extended 100 mg capsule 100 mg PO BID Visit Report/Discharge Packet Instructions: DI for Seizure Disorder -- Adult, Phenytoin (By mouth)
[2022-05-02] MEDS: PHENYTOIN ER 100 MG CAPSULE PO (10:36)
[2022-05-02] MEDS: DOXYCYCLINE HYCLATE 100 MG TABLET PO (10:36)
[2022-05-02] MEDS: cefTRIAXone 1,000 MG in SODIUM CHLORIDE 0.9% 100 ML 200 MG IV (10:36)
[2022-05-02] MEDS: CITALOPRAM 10 MG TABLET 40 MG PO (10:36)
[2022-05-02] MEDS: ACETAMINOPHEN 325 MG TABLET 650 MG PO (12:25)
--- NOTE | 2022-05-02 15:05 | PC.NURSE ---
Discharge Note Patient A&O, VSS, RA, no complaints of pain/discomfort. Discharge information reviewed with patient, all questions/concerns addressed. TELE/PIV discontinued. Patient able to pack all belongings and dress self. Medications retrieved from pharmacy and given to patient. Patient taken down via wheelchair to POV.
--- NOTE | 2022-05-19 07:34 | PC.NURSE ---
Late Entry: Ceftriaxone initiated 05/02 at 1036, complete at 1107.
== END 2022-05-02 14:00 | disposition home or self-care (01) ==
LOC: ED 05-02 05:05 → AC 05-02 06:55
PROVIDERS: Admitting Provider Nurse Practitioner Family; Emergency Provider Emergency Medicine; Referring Provider Emergency Medicine; Visit Provider Nurse Practitioner Family
DX: G40.909 Epilepsy, unspecified, not intractable, without status epilepticus (principal); E03.9 Hypothyroidism, unspecified; F32.A Depression, unspecified; I10 Essential (primary) hypertension; Z20.822 Contact with and (suspected) exposure to COVID-19
CPT/HCPCS: 36415; 36600; 71275; 80048; 80053; 80185; 80320; 80329; 82805; 83690; 83735; 84145; 84146; 84443; 85025; 87040; 87635; 96361; 96365; 96367; 99284; C9803; G0378; G0480; J0696; J2543; Q9967